=== PATIENT | female | born 1955 | race Caucasian/White ===

== ENCOUNTER 2024-01-25 07:52 | Day surgery (SDC) | payer MEDICARE ==
[2024-01-22 16:00] LABS: BASOPHILS # (AUTO) 0.1 X10'3 (0-0.2); BASOPHILS % (AUTO) 0.7 % (0-1); EOSINOPHILS # (AUTO) 0.1 X10'3 (0-0.9); LYMPHOCYTES # (AUTO) 1.4 X10'3 (1.1-4.8); LYMPHOCYTES % (AUTO) 15.4 % (21-51); MEAN CORPUSCULAR HEMOGLOBIN 27.4 PG (27.0-31.0); MEAN CORPUSCULAR HGB CONC 32.8 g/dL (33.0-36.5); MEAN CORPUSCULAR VOLUME 83.6 FL (78-98); MEAN PLATELET VOLUME 8.2 FL (7.4-10.4); MONOCYTES # (AUTO) 0.6 X10'3 (0-0.9); MONOCYTES % (AUTO) 6.7 % (2-12); NEUTROPHILS # (AUTO) 6.7 X10'3 (1.8-7.7); NEUTROPHILS % (AUTO) 76.2 % (42-75); PRE OP HEMATOCRIT 44.1 % (35.0-45.0); PRE OP HEMOGLOBIN 14.5 g/dL (12.0-16.0); PRE OP PLATELET COUNT 300 X10'3 (140-440); PRE OP WHITE BLOOD COUNT 8.8 10'3 (4.8-10.8); RED BLOOD COUNT 5.27 X10'6 (4.20-5.60); RED CELL DISTRIBUTION WIDTH 14.9 % (11.5-14.5)
[2024-01-22 16:11] LABS: ALBUMIN 3.7 G/DL (3.4-5.0); ALBUMIN/GLOBULIN RATIO 1.1 (1.1-1.5); ALKALINE PHOSPHATASE 69 IU/L (46-116); BLOOD UREA NITROGEN 13 MG/DL (7-18); BUN/CREATININE RATIO 15.9 (10.0-20.0); CALCIUM 9.6 MG/DL (8.5-10.1); CHLORIDE 106 MMOL/L (99-107); CREATININE 0.82 MG/DL (0.40-0.90); PRE OP ALT 19 U/L (30-65); PRE OP ANION GAP 6 (8-16); PRE OP AST 22 U/L (10-37); PRE OP BILIRUB, TOTAL 0.2 MG/DL (0.0-1.0); PRE OP GLUCOSE 94 MG/DL (70-104); PRE OP POTASSIUM 3.6 MMOL/L (3.4-5.1); PRE OP SODIUM 140 MMOL/L (135-145); TOTAL CARBON DIOXIDE 28.1 MMOL/L (24-32); TOTAL PROTEIN 7.2 G/DL (6.4-8.2); eGFR 69 ML/MIN
[~2024-01-25] VITALS: Ht 154.9 cm; Wt 78.3 kg
[2024-01-25] VITALS (12 sets, daily range): BP systolic 113–167; BP diastolic 71–90; PULSE 69–95; RESP 8–16; TEMP 99.4; O2SAT 94–100
[2024-01-25] MEDS: levoFLOXACIN-Levaquin 500mg/D5 100 ML IV ONE (05:30)
[~2024-01-25 07:52] MED LIST: ACET-2119 PO; ESTR1PAT30 TD; FLUT16SP2 BOTHNARES; IBUP200C5 PO
[2024-01-25] MEDS: famotidine 20mg tablet PO ONE (09:06)
[2024-01-25] MEDS: ringers solution, lacted 1,000 ML IV SCH (09:07)
[2024-01-25] MEDS ORDERED: ringers solution, lacted 1,000 ML IV SCH (09:25)
[2024-01-25] MEDS ORDERED: proCHLORperazine 10 MG/2 ml inj IV PRN (09:25)
[2024-01-25] MEDS ORDERED: morphine 2 MG/ML inj. syringe IV PRN (09:25)
[2024-01-25] MEDS ORDERED: ondansetron/PF 4mg/2ml inj IV PRN (09:25)
[2024-01-25] MEDS ORDERED: morphine 4 MG/ML inj SYRINge IV PRN (09:25)
[2024-01-25] MEDS ORDERED: labetalol 20mg/4ml (5mg/ml) syringe IV PRN (09:25)
[2024-01-25] MEDS ORDERED: hydrALAZINE 20mg/ml inj. IV PRN (09:25)
[2024-01-25] MEDS ORDERED: meperidine/PF 25mg/ml syringe IV PRN ×3 (09:25)
[2024-01-25] MEDS ORDERED: LIDOcaine 1% (10mg/ml)w/preservative inj. 20ml MDV ONE (10:00)
[2024-01-25] MEDS ORDERED: BUPIVAcaine 2.5mg/ml inj 50ml vial (contains preservative) ONE (10:00)
[2024-01-25] MEDS ORDERED: sevoflurane 250ml liquid IH ONE (10:17)
[2024-01-25] MEDS ORDERED: fentaNYL/PF 50MCG/1 ML 2ML syringe ONE (10:22)
[2024-01-25] MEDS ORDERED: midazolam 1 mg/ML 2ml injection ONE (10:33)
[2024-01-25] MEDS ORDERED: LIDOcaine 2% (20mg/ml) 5ml vial ONE (10:33)
[2024-01-25] MEDS ORDERED: propofol inj 20 ML IV ONE (10:33)
[2024-01-25] MEDS ORDERED: dexamethasone sod phosphate 4mg/ml inj. ONE (10:34)
[2024-01-25] MEDS ORDERED: ondansetron/PF 4mg/2ml inj ONE (10:34)
[2024-01-25] MEDS: BUPIVAcaine 2.5mg/ml inj 50ml vial (contains preservative) SQ ONE (10:49)
[2024-01-25] MEDS: acetaminophen 1,000mg/100ml IV 100 ML IV ONE (12:36)
[2024-01-25] MEDS: oxyCODONE/APAP 5-325mg tablet PO STA (12:46)
== END 2024-01-25 13:05 | disposition home or self-care (01) ==
LOC: PRE-OP 07:52 → PAS 13:05
PROVIDERS: ATTEND Surgery
DX: N60.11 Diffuse cystic mastopathy of right breast (principal); D24.1 Benign neoplasm of right breast; I25.2 Old myocardial infarction; Z79.899 Other long term (current) drug therapy; Z90.710 Acquired absence of both cervix and uterus; Z88.0 Allergy status to penicillin; Z91.013 Allergy to seafood
CPT/HCPCS: 19301; 36415; 80053; 82948; 85025; 88341; 93005; A4215; A4618; A6402; A7000; J0131; J1100; J1956; J2001; J2250; J2405; J2704; J3010; J3490; J7030; J7120; Z7506; Z7508; Z7512; Z7610; 88307; 88342; A6449